=== PATIENT | male | born 1940 | race Caucasian/White ===

== ENCOUNTER → 2016-08-18 | Outpatient (CLI) | payer MEDICARE ==
[~2016-08-18] MED LIST: ASPI-515 PO; FENO145T32 PO; LOSA1TAB2 PO
== END | disposition home or self-care (01) ==
LOC: CFH 08:37
PROVIDERS: ATTEND Family Medicine
DX: I10 Essential (primary) hypertension (principal)
CPT/HCPCS: 71020

== ENCOUNTER 2016-11-10 16:07 | Emergency (ER) | payer MEDICARE ==
[~2016-11-10] VITALS: Ht 172.7 cm; Wt 90.4 kg
[2016-11-10 16:10] VITALS: BP 150/84
[2016-11-10] MEDS ORDERED: BACITRACIN ZINC OINT 500U/GM, 0.9 GM ONE (16:40)
== END 2016-11-10 17:39 | disposition home or self-care (01) ==
LOC: ED 16:59
DX: S61.411D Laceration without foreign body of right hand, subsequent encounter (principal); Z88.0 Allergy status to penicillin; X58.XXXD Exposure to other specified factors, subsequent encounter; Y92.89 Other specified places as the place of occurrence of the external cause; Y99.8 Other external cause status
CPT/HCPCS: 99283